=== PATIENT | female | born 1970 | race Caucasian/White ===

== ENCOUNTER 2018-05-09 14:32 | Emergency (ER) | payer BC ==
[~2018-05-09] VITALS: Ht 170.2 cm; Wt 86.0 kg
[2018-05-09] MEDS ORDERED: famotidine/PF 10 mg/ml inj IV ONE (14:55)
[2018-05-09] MEDS ORDERED: ketorolac tromethamine 15mg/ml inj. IV ONE (14:55)
[2018-05-09] MEDS ORDERED: ondansetron/PF 4mg/2ml inj IV ONE (14:55)
[2018-05-09 15:08] LABS: BASOPHILS % (AUTO) 0.3 % (0-1); EOSINOPHILS # (AUTO) 0.2 X10'3 (0-0.9); EOSINOPHILS % (AUTO) 1.3 % (0-6); HEMOGLOBIN 14.7 g/dl (12.0-16.0); LYMPHOCYTES # (AUTO) 1.1 X10'3 (1.1-4.8); LYMPHOCYTES % (AUTO) 8.6 % (21-51); MEAN CORPUSCULAR HGB CONC 34.1 % (33.0-36.5); MEAN CORPUSCULAR VOLUME 90.9 FL (78-98); MEAN PLATELET VOLUME 8.8 FL (7.4-10.4); MONOCYTES # (AUTO) 0.6 X10'3 (0-0.9); MONOCYTES % (AUTO) 4.9 % (2-12); NEUTROPHILS # (AUTO) 11.2 X10'3 (1.8-7.7); NEUTROPHILS % (AUTO) 84.9 % (42-75); PLATELET COUNT 285 X10'3 (140-440); RED BLOOD COUNT 4.74 X10'6 (4.20-5.60); RED CELL DISTRIBUTION WIDTH 12.9 % (11.5-14.5); WHITE BLOOD COUNT 13.2 X10'3 (4.5-11.0)
[2018-05-09 15:24] LABS: ALANINE AMINOTRANSFERASE 39 U/L (12-78); ALBUMIN 3.5 G/DL (3.4-5.0); ALKALINE PHOSPHATASE 80 IU/L (46-116); ANION GAP 8 (8-16); ASPARTATE AMINO TRANSFERASE 17 U/L (10-37); BILIRUBIN,TOTAL 0.7 MG/DL (0.1-1.0); BLOOD UREA NITROGEN 9 MG/DL (7-18); BUN/CREATININE RATIO 9.8 (6.6-38.0); CALCIUM 9.8 MG/DL (8.5-10.1); CHLORIDE 101 MMOL/L (99-107); CREATININE 0.92 MG/DL (0.40-0.90); GLUCOSE 141 MG/DL (70-104); LIPASE 104 U/L (73-393); POTASSIUM 3.6 MMOL/L (3.5-5.1); SODIUM 134 MMOL/L (135-145); TOTAL CARBON DIOXIDE 24.8 MMOL/L (24-32); TOTAL PROTEIN 7.1 G/DL (6.4-8.2); eGFR 65 ML/MIN
[2018-05-09 15:28] LABS: D-DIMER 0.38 MG/L FEU (0-0.50); PARTIAL THROMBOPLASTIN TIME 28 SECONDS (22-32); PROTHROMBIN TIME 10.5 SECONDS (9.0-12.0)
[2018-05-09 15:40] VITALS: BP 132/77
[2018-05-09 15:46] LABS: CLARITY,URINE CLEAR (Clear); COLOR,URINE YELLOW (Yellow); GLUCOSE, URINE NEGATIVE (Neg); KETONES,URINE >=80 mg/dl (Neg); LEUKOCYTE ESTERASE ,URINE NEGATIVE (Neg); NITRITES, URINE NEGATIVE (Neg); OCCULT BLOOD,URINE NEGATIVE (Neg); PROTEIN,URINE NEGATIVE (Neg); UROBILINOGEN,URINE 0.2 E.U/dL (0.2-1.0)
[2018-05-09 15:47] LABS: UA COLLECTION TYPE VOIDED
[2018-05-09] MEDS ORDERED: ketorolac trometh. 30mg/ml inj. IM ONE (16:25)
[2018-05-09] MEDS ORDERED: ONDA8TAB9 PO (16:27)
[2018-05-09] MEDS ORDERED: CIPR-259 PO (16:27)
[2018-05-09] MEDS ORDERED: METR500T PO (16:27)
== END 2018-05-09 18:10 | disposition home or self-care (01) ==
LOC: ER 14:33
DX: K57.92 Diverticulitis of intestine, part unspecified, without perforation or abscess without bleeding (principal); R07.89 Other chest pain; Z90.49 Acquired absence of other specified parts of digestive tract; Z79.2 Long term (current) use of antibiotics; Z79.899 Other long term (current) drug therapy
CPT/HCPCS: 36415; 80053; 81003; 83690; 83735; 84484; 85025; 85379; 85610; 85730; 93005; 96372; 96374; 96375; 99285; J1885; J2405; J3490